=== PATIENT | female | born 1965 | race Caucasian/White ===

== ENCOUNTER 2023-10-14 06:45 | Day surgery (SDC) | payer BC ==
[~2023-10-14 06:45] MED LIST: Bupivacaine 0.5% 30 ML SDV ONE; Sodium Chloride 0.9% 10 ML Syringe FLUSH PRN; Sodium Chloride 0.9% 10 ML Syringe FLUSH SCH
[2023-10-14] MEDS ORDERED: Ondansetron 4 MG/2 ML SDV ONE (06:52)
[2023-10-14] MEDS ORDERED: Propofol 200 MG/20 ML SDV ONE ×2 (06:52→08:41)
[2023-10-14] MEDS ORDERED: fentaNYL 100 MCG/2 ML SDV ONE (06:52)
[2023-10-14] MEDS ORDERED: Midazolam 1 MG/ML 2 ML SDV ONE (06:52)
[2023-10-14] MEDS ORDERED: Dexamethasone 4 MG/ML 5 ML MDV ONE (06:52)
[2023-10-14] MEDS: Lactated Ringers 1,000 ML IV SCH (07:10)
[2023-10-14] MEDS ORDERED: ceFAZolin 2 GM Vial ONE (07:59)
[2023-10-14] MEDS ORDERED: Lactated Ringers 1,000 ML IV ONE (08:30)
[2023-10-14] MEDS: Vancomycin 1 GM SDV ONE (09:05)
[2023-10-14] MEDS: Tranexamic Acid 1,000 MG/10 ML Vial ONE (09:05)
[2023-10-14] MEDS: Morphine 8 MG, EPINEPHrine 0.3 MG, Cefuroxime 750 MG, Ketorolac 30 MG, Sodium Chloride ... PRN (09:05)
[2023-10-14] MEDS: Bupivacaine 0.25% 10 ML SDV ONE (09:20)
[2023-10-14] MEDS: Triamcinolone Acetonide 40 MG/ML 1 ML SDV ONE (09:20)
[2023-10-14] MEDS: oxyCODONE 5 MG Tab PO PRN (11:27)
== END 2023-10-14 12:55 | disposition home or self-care (01) ==
LOC: JD.SDS 06:45
PROVIDERS: ATTEND Orthopaedic Surgery
DX: M17.0 Bilateral primary osteoarthritis of knee (principal); D86.9 Sarcoidosis, unspecified; E03.9 Hypothyroidism, unspecified; F32.A Depression, unspecified; K21.9 Gastro-esophageal reflux disease without esophagitis; Z79.82 Long term (current) use of aspirin; Z79.899 Other long term (current) drug therapy; Z88.5 Allergy status to narcotic agent
CPT/HCPCS: 0055T; 20610; 27447; 73560; 97110; 97161; A9270; C1713; C1776; J0171; J0665; J0690; J0697; J1100; J1885; J2250; J2270; J2405; J2704; J3010; J3301; J3370; J3490; J7120; 00142